=== PATIENT | female | born 2000 | race Caucasian/White ===

== ENCOUNTER 2019-10-18 12:59 | Emergency (ER) | payer OTHER ==
[2019-10-18 14:01] VITALS: BP 104/71
--- NOTE | 2019-10-18 14:50 | UC ---
Complaint Female HPI - HPI Summary HPI Summary: Pt presents with c/o urgency, frequency and dysuria X 1 week. - History Of Current Complaint Chief Complaint: UCGU Stated Complaint: URINARY COMPLAINT Time Seen by Provider: 10/18/19 14:44 Hx Obtained From: Patient Hx Last Menstrual Period: "last week" ?: No Onset/Duration: Sudden Onset, Lasting Days, Still Present Timing: Constant Severity Initially: Mild Severity Currently: Moderate Pain Intensity: 2 Character: Dull, Burning Aggravating Factor(s): Urination Alleviating Factor(s): Nothing Associated Signs And Symptoms: Positive: Negative - Risk Factors Ectopic Risk Factor: Negative Ovarian Torsion Risk Factor: Reproductive Age - Allergies/Home Medications Allergies/Adverse Reactions: Allergies Allergy/AdvReac Type Severity Reaction Status Date / Time No Known Allergies Allergy Verified 10/18/19 13:58 PMH/Surg Hx/FS Hx/Imm Hx Previously Healthy: Yes - Surgical History Surgical History: None - Family History Known Family History: Positive: Cardiac Disease - Social History Occupation: Student Lives: With Family Alcohol Use: Rare Substance Use Type: None Smoking Status (MU): Never Smoked Tobacco Have You Smoked in the Last Year: No - Immunization History Vaccination Up to Date: Yes Review of Systems All Other Systems Reviewed And Are Negative: Yes Constitutional: Positive: Negative Skin: Positive: Negative Eyes: Positive: Negative ENT: Positive: Negative Respiratory: Positive: Negative Cardiovascular: Positive: Negative Gastrointestinal: Positive: Negative Genitourinary: Positive: Dysuria, Frequency, Urgency Motor: Positive: Negative Neurovascular: Positive: Negative Musculoskeletal: Positive: Negative Neurological/Mental Status: Positive: Negative Psychological: Positive: Negative Is Patient Immunocompromised?: No Physical Exam Triage Information Reviewed: Yes Appearance: Well-Appearing Vital Signs: Initial Vital Signs Temp 98.4 F 10/18/19 13:56 Pulse 87 10/18/19 13:56 Resp 16 10/18/19 13:56 BP 104/71 10/18/19 13:56 Pulse Ox 100 10/18/19 13:56 Vital Signs Reviewed: Yes Eye Exam: Normal ENT Exam: Normal ENT: Positive: Hearing grossly normal Dental Exam: Normal Neck exam: Normal Respiratory Exam: Normal Respiratory: Positive: Normal breath sounds Cardiovascular Exam: Normal Abdomen Description: Positive: Other: - suprapubic tenderness Musculoskeletal Exam: Normal Neurological Exam: Normal Psychological Exam: Normal Skin Exam: Normal Complaint Female Dx - Differential Dx/Diagnosis Differential Diagnosis/HQI/PQRI: Urinary Tract Infection Provider Diagnosis: UTI (urinary tract infection) Discharge ED - Sign-Out/Discharge Documenting (check all that apply): Patient Departure All imaging exams completed and their final reports reviewed: No Studies - Discharge Plan Condition: Stable Disposition: HOME Prescriptions: Cephalexin CAP* [Keflex 500 CAP*] 500 mg PO Q12H #14 cap Patient Education Materials: Urinary Tract Infection in Women (ED) Referrals: [facility] [Outside] - If Needed No Primary Care Phys,NOPCP [Primary Care Provider] - - Billing Disposition and Condition Condition: STABLE Disposition: Home
== END 2019-10-18 14:56 | disposition home or self-care (01) ==
LOC: UCCORT 12:59
DX: N39.0 Urinary tract infection, site not specified (principal)
CPT/HCPCS: 81003; 84702; 87077; 87086; 87186; 99202; G0463